=== PATIENT | female | born 1955 | race Caucasian/White ===

== ENCOUNTER 2019-11-19 08:49 | Outpatient (CLI) | payer OTHER ==
[~2019-11-19] VITALS: Ht 162.6 cm; Wt 67.3 kg
--- NOTE | ~2019-11-19 | HEMODYNAMI ---
PATIENT:EVER ASHRAF MEDICAL RECORD: [id number] : 55 LOCATION:[facility] ADMISSION DATE: 11/19/19 Generatedon:11/19/201911:29 Patient name: EVER ASHRAF Patient #: [id number] : 1955 Date of study: 11/19/2019 Page: Of Hemodynamic Procedure Report Patient Data Patient Demographics Procedure consent was obtained First Name: EVER Gender: Female Last Name: PASCALE : 1955 Patient #: [id number] Age: 64 year(s) Race: SSN: [id number] Additional ID: [id number] Contact details [address]: [address] [place] [address] State: [place] City: [place] Zip code: [address] Admission Admission Data Admission Date: 11/19/2019 Admission Time: 8:49 Arrival Date: 11/19/2019 Arrival Time: 11:00 Admit Source: Other Insurance Payor: Private health insurance [facility] #: [id number] Lab Results Lab Result Date: 11/19/2019 Lab Result Time: 0:00 Biochemistry Name Units Result Min Max BUN mg/dl 16 --(---*)-- 7 18 Creatinine mg/dl 1 --(--*-)-- 0.6 1.3 eGFR ml/min 59 *-(----)-- 90 120 NONAFRICAN CBC Name Units Result Min Max Hemoglobin g/dl 13.8 --(*---)-- 13.5 17.5 Procedure Procedure Types Cath Procedure Diagnostic Procedure LHC LHC w/Coronaries w/Grafts Sedation Charges Moderate Sedation up to 30 minutes PCI Procedure Coronary Stent Coronary Stent Initial x2 AMI/SVG/TABLET MAKING MACHINE OPERATOR HELPER PTCA or Stent SVG-BMS/MYLA Initial Hemochron ACT Test Procedure Description Procedure Date Procedure Date: 11/19/2019 Procedure Start Time: 10:57 Procedure End Time: 11:26 Procedure Staff Name Function Alejandro Michael RT Scrub Pratibha Ta RT Monitor Soren Fuentes MD Performing Physician Harmony Lazaro RN Nurse Procedure Data Cath Procedure Fluoroscopy Diagnostic fluoroscopy Total fluoroscopy Time: 9 time: 9 min min Diagnostic fluoroscopy Total fluoroscopy dose: 713 dose: 713 mGy mGy Contrast Material Contrast Material Type Amount (ml) Isovue 300 125 Entry Location Entry Primary Successful Side Size Upsize Upsize Entry Closure Succes sful Closure Location (Fr) 1 (Fr) 2 (Fr) Remarks Device Remarks Femoral Right 5 Fr 6 Fr Exoseal artery Short Estimated blood loss: 5 ml Diagnostic catheters Device Type Used For End Catheter Placement MULTIPACK Pigtail 5 Fr LV Angiography catheter MULTIPACK JL 4.0 5Fr Left Coronary catheter Angiography MULTIPACK 3DRC 5Fr Right Coronary catheter Angiography DIAGNOSTIC AR2 MOD 5 Fr Multi-vessel catheter ([id number]) Angiography Procedure Complications No complications Procedure Medications Medication Administration Route Dosage Oxygen etCO2 Nasal cannula 2 l/min Heparin Flush Bag added to field 2 bags (1000units/500ml NS) Lidocaine 2% added to field 20 0.9% NaCl I.V. 100 ml/hr Fentanyl I.V. 100 mcg Versed I.V. 2 mg Fentanyl I.V. 50 mcg Versed I.V. 1 mg Heparin Bolus I.V. 4000 units Fentanyl I.V. 25 mcg Versed I.V. 0.5 mg Fentanyl I.V. 25 mcg Versed I.V. 0.5 mg Plavix P.O. 75 mg Hemodynamics Rest HGB: 13.8 (g/dl) Heart Rate: 51 (bpm) Pressure Samples Time Site Value (mmHg) Purpose Heart Use Rate(bpm) 10:59 LV 140/36,44 Snapshot 66 Snapshots Pre Cath Intra NCS Post Cath Vital Signs Time Heart Resp SPO2 etCO2 NIBP (mmHg) Rhythm Pain Sedation Rate (ipm) (%) (mmHg) Status Level (bpm) 10:41:21 51 22 96 11.4 145/75(110) NSR 0 (11) 10(A) , No pain 10:45:39 55 19 98 22.1 152/64(108) NSR 0 (11) 10(A) , No pain 10:49:49 55 38 96 17.5 137/72(102) NSR 0 (11) 10(A) , No pain 10:54:05 50 16 96 20.5 70/34(54) NSR 0 (11) 10(A) , No pain 10:59:04 70 13 96 20.5 Measuring NSR 0 (11) 10(A) , No pain 10:59:29 52 15 94 23.6 108/67(94) NSR 0 (11) 10(A) , No pain 11:03:32 58 12 86 32.8 122/67(89) NSR 0 (11) 9(A) , No pain 11:07:36 57 12 90 27.4 135/86(108) NSR 0 (11) 9(A) , No pain 11:11:50 58 12 89 38.1 113/68(95) NSR 0 (11) 9(A) , No pain 11:15:58 48 13 87 32.8 117/63(114) NSR 0 (11) 9(A) , No pain 11:20:02 65 24 94 31.2 112/79(104) NSR 0 (11) 9(A) , No pain 11:25:01 64 15 95 37.4 141/82(113) NSR 0 (11) 10(A) , No pain Medications Time Medication Route Dose Verified Delivered Reason Notes Effectiveness by by 10:37:06 Oxygen etCO2 2 Harmony Harmony for low 02 sats Nasal l/min Tejas Lazaro cannula RN RN 10:37:13 Heparin Flush added 2 Harmony Harmony used for Bag to bags Lazaro Lazaro procedure (1000units/500ml RN RN NS) 10:37:22 Lidocaine 2% added 20ml Harmony Soren for local to vial Tejas Fuentes MD anesthetic field CHIN 10:37:37 0.9% NaCl I.V. 100 Harmony Harmony Per physician ml/hr Tejas Lazaro RN RN 10:57:20 Fentanyl I.V. 100 Harmony Harmony for sedation mcg Tejas Lazaro RN RN 10:57:24 Versed I.V. 2 mg Harmony Harmony for sedation Tejas Lazaro RN RN 11:00:37 Fentanyl I.V. 50 Harmony Harmony for sedation mcg Tejas Lazaro RN RN 11:00:41 Versed I.V. 1 mg Harmony Harmony for sedation Tejas Lazaro RN RN 11:08:44 Heparin Bolus I.V. 4000 Harmony Harmony for units Tejas Josékins anticoagulation RN RN 11:08:52 Fentanyl I.V. 25 Harmony Harmony for sedation mcg Tejas Lazaro RN RN 11:08:55 Versed I.V. 0.5 Harmony Harmony for sedation mg Tejas Lazaro RN RN 11:20:32 Fentanyl I.V. 25 Harmony Harmony for sedation mcg Tejas Lazaro RN RN 11:20:36 Versed I.V. 0.5 Harmony Harmony for sedation mg Tejas Lazaro RN RN 11:24:25 Plavix P.O. 75 mg Harmony Harmony for Lazaro Lazaro antiplatelet RN RN therapy Procedure Log Time Note 10:12:29 Informed consent obtained and on chart 10:13:25 Arrival Date: 11/19/2019 11:00:00 AM 10:13:41 Admit Source: Other 10:13:41 Insurance Payor : Private health insurance 10:14:11 Diagnostic Cath Status : Elective 10:14:35 Procedure Status Elective Heart Cath (OP). 10:14:38 Alejandro GARNER(R) (CV) sent for patient. Start room use. 10:14:39 Time tracking: Regular hours (M-F 7:00 - 5:00) 10:14:43 Plan of Care:Hemodynamics will remain stable., Cardiac rhythm will remain stable., Comfort level will be maintained., Respiratory function will remain adequate., Patient/ family verbilizes understanding of procedure., Procedure tolerated without complication., Recovers from procedure without complications.. 10:17:50 Lab Result : eGFR NONAFRICAN 59 ml/min 10:17:50 Lab Result : Hemoglobin 13.8 g/dl 10:17:50 Lab Result : BUN 16 mg/dl 10:17:50 Lab Result : Creatinine 1 mg/dl 10:19:15 Risk of Mortality: 0.1 10:19:17 Risk of blood transfusion: 1.0 10:19:20 Risk of DAVID: 0.4 10:19:27 3a) 45-59 Moderately reduced kidney function. 10:22:27 Maximum allowable contrast dose (3.7 X eGFR X 0.75)163 ml. 10:37:06 Oxygen 2 l/min etCO2 Nasal cannula was administered by Harmony Lazaro RN; for low 02 sats; Verbal order read back and verified. 10:37:13 Heparin Flush Bag (1000units/500ml NS) 2 bags added to field was administered by Harmony Lazaro RN; used for procedure; Verbal order read back and verified. 10:37:22 Lidocaine 2% 20ml vial added to field was administered by Soren Fuentes MD; for local anesthetic; Verbal order read back and verified. 10:37:37 0.9% NaCl 100 ml/hr I.V. was administered by Harmony Lazaro RN; Per physician; Verbal order read back and verified. 10:40:09 Correct patient and procedure confirmed by team. 10:40:09 Warm blankets applied, and kishore hugger turned on for patient comfort. 10:40:10 Vital chart was started 10:40:10 ECG and BP/O2 sat monitors applied to patient. 10:40:11 Baseline sample Acquired. 10:40:15 Rhythm: sinus rhythm 10:40:42 Full Disclosure recording started 10:40:46 H&P Date Dictated: 11/19/2019 Within 30 days and on chart., H&P Addendum completed by physician on day of procedure. (MUST COMPLETE FOR ALL OUTPATIENTS). 10:40:47 Pre-procedure instructions explained to patient. 10:40:48 Pre-op teaching completed and patient verbalized understanding. 10:40:49 Family in patients room. 10:40:57 Patient NPO since Midnight. 10:40:58 Is the patient allergic to Iodine/contrast media? No. 10:40:59 Was the patient premedicated? Yes 10:41:00 Is patient on blood thinner?Yes 10:41:04 ACC The patient was administered the following blood thiners within the last 24 hours: ACCPlavix 10:41:21 Patient diabetic? No. 10:41:25 Previous problem with sedation/anesthesia? No ? 10:41:26 Snore? Yes 10:41:27 Sleep apnea? No 10:41:28 Opens mouth fully? Yes 10:41:28 Deviated septum? No 10:41:29 Sticks out tongue? Yes 10:41:34 Airway obstruction? Yes emphysema 10:41:42 Dentures? Yes [id number] in tight 10:41:50 Pre procedure: right dorsailis pedis pulse 2+ Normal; easily identifiable; not easily obliterated 10:41:52 Pre procedure: left dorsailis pedis pulse 2+ Normal; easily identifiable; not easily obliterated 10:41:53 Patient pain scale 0/10 ?. 10:41:59 IV patent on arrival in right forearm with 0.9% NaCl at O. 10:42:02 Lab results completed and on chart. 10:42:07 Stress Test: yes; abnormal ? 10:42:11 Right groin area was prepped with chlora-prep and draped in sterile fashion 10:42:12 Alarms reviewed by R. N. 10:42:13 Sharps counted by scrub and verified by R.N. 10:42:14 --------ALL STOP TIME OUT------ 10:42:14 Physician arrived 10:42:16 Final Timeout: patient, procedure, and site verified with staff and physician. All members of the team are in agreement. 10:42:18 Right groin site verified by team. 10:42:21 Fire Safety Assessment: A--An alcohol-based skin anteseptic being used preoperatively., C--Open oxygen or nitrous oxide is being used., D--An ESU, laser, or fiber-optic light is being used. 10:42:24 Physical assessment completed. ASA score P 2 - A patient with mild systemic disease as per Soren Fuentes MD. 10:42:27 Sedation plan: IV Moderate Sedation Medication:Versed, Fentanyl 10:42:32 Use device set Femoral Dx 10:42:33 ACIST Syringe (01521) opened to sterile field. 10:42:34 Medline Cath Pack ([id number]) opened to sterile field. 10:42:34 Bag Decanter () opened to sterile field. 10:42:35 ACIST Hand Control (35653) opened to sterile field. 10:42:36 Tegaderm 4 x 4 (1626W) opened to sterile field. 10:42:36 DIAGNOSTIC Multipack 5Fr catheter set ([id number]) opened to sterile field. 10:42:36 ACIST Manifold (42903) opened to sterile field. 10:42:38 EMERALD Guide Wire (142-501) opened to sterile field. 10:42:38 SHEATH 5FR [employer] Randolph (CXV886) opened to sterile field. 10:55:37 IV started by Harmony Lazaro RN inleft hand with a 22 gauge IV catheter with 0.9% NaCl at [facility]. 10:56:51 IV right forearm D/C'd due to infiltration. 10:56:57 Procedure started. 10:57:00 Local anesthetic to right femoral artery with Lidocaine 2% by Soren Fuentes MD.INITIAL ACCESS ONLY 10:57:08 A 5 Fr sheath was inserted into the Right Femoral artery 10:57:20 Fentanyl 100 mcg I.V. was administered by Harmony Lazaro RN; for sedation; Verbal order read back and verified. 10:57:24 Versed 2 mg I.V. was administered by Harmony Lazaro RN; for sedation; Verbal order read back and verified. 10:57:39 Zero performed for pressure channel P1 10:58:03 A MULTIPACK Pigtail 5 Fr catheter was advanced over the wire and used for LV Angiography. 10:59:05 LV hemodynamics recorded. 10:59:06 LV gram done using REDDY 10:59:09 Injector settings: Ml/sec: 5, Volume: 15, 10:59:14 EF : 60 % 10:59:17 Catheter removed. 10:59:25 A MULTIPACK JL 4.0 5Fr catheter was advanced over the wire and used for Left Coronary Angiography. 10:59:54 LCA angiography performed. 10:59:57 Injector settings: Ml/sec: 3, Volume: 6, 11:00:37 Fentanyl 50 mcg I.V. was administered by Harmony Lazaro RN; for sedation; Verbal order read back and verified. 11:00:41 Versed 1 mg I.V. was administered by Harmony Lazaro RN; for sedation; Verbal order read back and verified. 11:00:45 Catheter removed. 11:00:53 A MULTIPACK 3DRC 5Fr catheter was advanced over the wire and used for Right Coronary Angiography. 11:01:22 MORALES to LAD angiography performed. 11:01:30 Injector settings: Ml/sec: 3, Volume: 6, 11:02:00 RCA angiography performed. 11:02:03 Injector settings: Ml/sec: 3, Volume: 6, 11:02:10 RCA angiography performed. 11:02:13 Injector settings: Ml/sec: 3, Volume: 6, 11:02:18 Catheter removed. 11:02:24 A DIAGNOSTIC AR2 MOD 5 Fr catheter ([id number]) was advanced over the wire and used for Multi-vessel Angiography. 11:03:29 SVG to Circ angiography performed. 11:04:34 Catheter removed. 11:04:35 Proceeding to intervention. 11:04:47 Sheath upsized to a 6 Fr Short. 11:05:46 SHEATH 6FR [employer] Randolph (JKA776) opened to sterile field. 11:05:47 CHOICE PT Extra Support 182cm wire ([id number]) opened to sterile field. 11:05:47 INFLATOR Merit BasixCompak (PE7003) opened to sterile field. 11:05:49 GUIDE 6FR AR 1.0 catheter (AQ6UU66) opened to sterile field. 11:05:56 GUIDE 6FR HS I catheter (LA6HSI) opened to sterile field. 11:06:22 6 Fr ar 1 sh guide catheter was inserted over the wire 11:06:43 ACC Pre-intervention JUANIS Flow is 3. 11:07:11 Pre PCI Site: Vein Graft mCirc has 90% stenosis. 11:07:44 Guide Catheter removed. unable to cannulate vessel. 11:08:41 6 Fr lcb guide catheter was inserted over the wire 11:08:44 Heparin Bolus 4000 units I.V. was administered by Harmony Lazaro RN; for anticoagulation; Verbal order read back and verified. 11:08:52 Fentanyl 25 mcg I.V. was administered by Harmony Lazaro RN; for sedation; Verbal order read back and verified. 11:08:53 GUIDE 6FR LCB catheter (LA6LCB) opened to sterile field. 11:08:55 Versed 0.5 mg I.V. was administered by Harmony Lazaro RN; for sedation; Verbal order read back and verified. 11:10:23 minamo wire advanced. 11:10:26 Wire advanced across lesion. 11:11:00 Place stent Inflation Number: 1 A LEO RX 3.0 x 26 stent ([id number]) was prepped and advanced across the Aorta Left -> Mid CX 90. The stent was deployed at 17 KRISHAN for 0:10 (min:sec) 0. 11:11:21 Inflation number: 2 The stent balloon was then re-inflated across the Aorta Left -> Mid CX 0 to 23 KRISHAN for 0:10 (min:sec) . 11:11:56 Wire removed. 11:11:57 Post PCI Site: Vein Graft mCirc has 0% stenosis. 11:11:57 Guide catheter removed. 11:12:19 6 Fr hs 1 guide catheter was inserted over the wire 11:13:31 minamo wire advanced. 11:13:32 Wire advanced across lesion. 11:13:37 ACC Pre-intervention JUANIS Flow is 3. 11:14:09 Pre PCI Site: [place] mRCA has 90% stenosis. 11:14:52 Inflation number: 1 The stent balloon was then re-inflated across the Mid RCA 90 to 23 KRISHAN for 0:10 (min:sec) 0. 11:16:20 Place stent Inflation Number: 2 A LEO RX 3.0 x 30 stent ([id number]) was prepped and advanced across the Mid RCA 90. The stent was deployed at 23 KRISHAN for 0:10 (min:sec) 0. 11:16:59 Stent catheter was removed intact over wire. 11:17:01 Wire removed. 11:17:02 Guide catheter removed. 11:17:15 Post PCI Site: [place] mRCA has 0% stenosis. 11:17:25 6 Fr xb 3.5 guide catheter was inserted over the wire 11:17:40 GUIDE 6FR XB 3.5 catheter ([id number]) opened to sterile field. 11:18:17 Pre PCI Site: [place] Diag1 has 95% stenosis. 11:18:28 minamo wire advanced. 11:18:42 Wire advanced across lesion. 11:20:32 Fentanyl 25 mcg I.V. was administered by Harmony Lazaro RN; for sedation; Verbal order read back and verified. 11:20:36 Versed 0.5 mg I.V. was administered by Harmony Lazaro RN; for sedation; Verbal order read back and verified. 11:21:04 Inflate balloon Inflation number: 1 A EUPHORA 2.0 x 15 Balloon ([id number]) was prepped and advanced across the 1st Diag 95, then inflated to 15 KRISHAN for 0:10 (min:sec) 0. 11:21:34 Balloon removed over the wire. 11:22:31 Place stent Inflation Number: 2 A LEO RX 2.25 x 18 stent ([id number]) was prepped and advanced across the 1st Diag 95. The stent was deployed at 13 KRISHAN for 0:10 (min:sec) 0. 11:23:27 Stent catheter was removed intact over wire. 11:23:28 Guide catheter removed. 11:23:28 Wire removed. 11:23:39 Post PCI Site: [place] Diag1 has 0% stenosis. 11:23:48 ACC Post-intervention JUANIS Flow is 3. 11:23:57 EXOSEAL 6Fr (EX600) opened to sterile field. 11:24:20 Sheath removed intact; hemostasis achieved with Exoseal to the Right Femoral artery. 11:24:22 Procedure ended.(Physican Out) 11:24:25 Plavix 75 mg P.O. was administered by Harmony Lazaro RN; for antiplatelet therapy; Verbal order read back and verified. 11:25:16 Fluoroscopy time 09.00 minutes. 11:25:19 ACT drawn and resulted at out of range seconds. (normal therapeutic range 180-240 seconds). 11:25:21 Fluoroscopy dose: 713 mGy 11:25:21 Flurop Dose total: 713 11:25:30 Dose Area Product 51736 mGy/cm. 11:25:34 Contrast amount:Isovue 300 125ml. 11:25:35 Maximum allowable dose exceeded? No. 11:25:37 Sharps counted by scrub and verified by R.N. 11:25:38 Insertion/operative site no bleeding no hematoma. 11:25:41 Post-op/insertion site Right Femoral artery dressed using a 4 x 4 and Tegaderm. 11:25:43 Post right femoral artery:stable 11:25:47 Post procedure rhythm: unchanged. 11:25:50 Estimated blood loss: 5 ml 11:25:52 Patient needs reinforcement of post procedure teaching. 11:25:52 Post procedure instruction explained to patient.Patient verbalizes understanding. 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 11:26:27 Procedure Complication : No complications 11:26:30 Vital chart was stopped 11:26:32 [facility] Findings: MVD- PCI performed (see procedure note) 11::33 See physician's report for complete and final results. 11::33 Operative report dictated upon procedure completion. 11::35 Report given to Pre/Post Procedure Room. 11:26:38 Patient transfered to Pre/Post Procedure Room with Stretcher. 11::40 Full Disclosure recording stopped 11::40 Procedure ended. 11:26:49 ACC-PCI Only Patient was given prescriptions, or instructed by Soren Fuentes MD to start/continue the following medications upon discharge: Plavix 11:26:50 End room use (Document Last) 11:27:26 End room use (Document Last) Intervention Summary Intervention Notes Time ActionType Lesion and Equipment Used Action# Pressure Duration Attributes 11:11:00 Place stent Aorta Left LEO RX 3.0 x 1 17 00:10 -> Mid CX 26 stent ([id number]) 11:11:21 Reinflate Aorta Left LEO RX 3.0 x 2 23 00:10 stent -> Mid CX 26 stent balloon ([id number]) 11:14:52 Reinflate Mid RCA LEO RX 3.0 x 1 23 00:10 stent 26 stent balloon ([id number]) 11:16:20 Place stent Mid RCA LEO RX 3.0 x 2 23 00:10 30 stent ([id number]) 11:21:04 Inflate 1st Diag EUPHORA 2.0 x 1 15 00:10 balloon 15 Balloon ([id number]) 11:22:31 Place stent 1st Diag LEO RX 2.25 x 2 13 00:10 18 stent ([id number]) Device Usage Item Name Manufacture Quantity Catalog Number Hospital Part Current M inimal Lot# / Charge Number Stock Stock Serial# Code ACIST Syringe Acist 1 46250 688396 827120 265181 2 0 (82893) Medical Systems Inc Bag Decanter Microtek 1 692249 86520 379036 5 () Medical Inc. Medline Cath Medline 1 [id number] 356746 48629 233735 5 Pack ([id number]) ACIST Hand Acist 1 71031 555136 585028 931227 5 Control Medical (60978) Systems Inc ACIST Manifold Acist 1 89364 811559 595663 841749 5 (92898) Medical Systems Inc DIAGNOSTIC Cardinal 1 BQ0963 639183 18911 241363 3 0 Multipack 5Fr Health catheter set (QY8496) Tegaderm 4 x 4 3M 1 1626W 577017 121190 690876 5 (1626W) SHEATH 5FR Terumo 1 AYQ199 314088 032787 583712 5 Jbsa Randolph (XRI145) EMERALD Guide Cardinal 1 502-455 775120 266288 128534 5 Wire (502-455) Health MULTIPACK Cardinal 1 906640 5 Pigtail 5 Fr Health catheter MULTIPACK JL Cardinal 1 597079 5 4.0 5Fr LY.com catheter MULTIPACK 3DRC Cardinal 1 111017 5 5Fr catheter Health DIAGNOSTIC AR2 Cardinal 1 [id number] 525630 898781 361135 2 0 MOD 5 Fr Health catheter (410035G) SHEATH 6FR Terumo 1 BVW317 727559 283824 486429 4 0 Jbsa Randolph (RGY877) INFLATOR Merit Merit 1 VZ3377 569315 548413 507707 1 5 Elementum (UC3754) CHOICE PT [place] 1 [id number] 973193 048423 161887 5 Extra Support Scientific 182cm wire ([id number]) GUIDE 6FR AR Medtronic 1 JD8QL19 332084 62086 921926 1 1.0 catheter (WT8RA73) GUIDE 6FR HS I Medtronic 1 LA6HSI 933719 47316 562902 1 catheter (LA6HSI) GUIDE 6FR LCB Medtronic 1 LA6LCB 315200 10274 954696 1 catheter (LA6LCB) LEO RX 3.0 x Medtronic 1 [id number] 358429 4564168 498872 5 [id number] 26 stent ([id number]) LEO RX 3.0 x Medtronic 1 [id number] 164356 6821179 342285 5 [id number] 30 stent ([id number]) GUIDE 6FR XB Cardinal 1 [id number] 140876 050964 124190 2 3.5 catheter [employer] (48376754) EUPHORA 2.0 x Medtronic 1 [id number] 957997 046649 736502 5 [id number] 15 Balloon ([id number]) LEO RX 2.25 x Medtronic 1 [id number] 389935 6669689 252333 5 [id number] 18 stent ([id number]) EXOSEAL 6Fr Cardinal 1 EX600 644436 969828 351789 1 0 (EX600) Health Signature Audit [place] Stage Time Signature Unsigned Intra-Procedure 11/19/2019 Pratibha Ta 11:27:27 AM RT(R) Intra-Procedure 11/19/2019 Soren Fuentes 11:29:00 AM MD Signatures Monitor : Pratibha Ta RT Signature : Date : Time : Performing Physician : Signature : Soren Fuentes MD Date : Time : Nurse : Harmony Lazaro RN Signature : Date : Time : [address] [place] [address]
--- NOTE | ~2019-11-19 | OP ---
PATIENT NAME: EVER ASHRAF MEDICAL RECORD: [id number] :55 LOCATION:D.CAT ADMISSION DATE: SURGEON: ALAINA ALEXANDRE MD DATE OF OPERATION: 11/19/2019 DATE OF SERVICE: 11/19/2019 PROCEDURES: 1. PTCA stent LAD diagonal. 2. PTCA stent vein graft to left circumflex. 3. PTCA stent [place] RCA. 4. Left heart catheterization. 5. Selective coronary angiography. 6. Vein graft angiography. 7. MORALES angiography. 8. Left ventriculogram. INDICATION: Unstable angina and coronary artery disease. PROCEDURE IN DETAIL: After informed consent was obtained and after a detailed description of the risks, benefits as well as alternative therapies, the patient elected to proceed with angiogram and angioplasty. The right femoral area was prepped and draped in normal sterile fashion. Right femoral artery was cannulated via modified Seldinger technique with placement of 6-Vietnamese sheath. All catheters exchanged through this sheath. FINDINGS: Left ventriculogram was performed in standard 30-degree REDDY view, reveals preserved cardiac wall motion, ejection fraction estimated at 55%. SELECTIVE CORONARY ANGIOGRAPHY: 1. Left main is with no significant angiographic disease. 2. Left anterior descending has a 95% to 99% stenosis leading into the first LAD diagonal. The LAD is then totally occluded. 3. Vein graft to the diagonal was closed. 4. MORALES to the LAD is widely patent. Distal LAD is widely patent. 5. Left circumflex is closed. 6. Vein graft to circumflex is patent; however, there is 90% to 95% stenosis at the ostium. There was a previously placed stent there. This is in-stent restenosis. 7. The RCA has a previously placed stent with 90% to 95% in-stent restenosis in the mid vessel. 8. Vein graft to the RCA is closed. PTCA STENT OF THE LAD DIAGONAL: The stent used was a 2.25 x 18 mm [place]. Result was 0% residual stenosis. PTCA STENT OF THE VEIN GRAFT TO THE CIRCUMFLEX: The stent used was 3.0 x 26 mm [place]. Result was 0% residual stenosis. PTCA STENT OF THE [place] RCA: The stent used was a 3.0 x 30 mm [place]. Result was 0% residual stenosis. OVERALL IMPRESSION: Successful percutaneous transluminal coronary angioplasty stent of the right coronary artery, vein graft circumflex and left anterior descending diagonal going from 90% to 95% initial stenosis to 0% residual. OPERATIVE REPORT [id number] EVER ASHRAF TRANSINT:[id number] Voice Confirmation ID: [id number] DOCUMENT ID: [id number] ALAINA ALEXANDRE MD CC: [id number] DICTATION DATE: 11/19/19 1128 TRAFFIC SAFETY ADMINISTRATOR: 11/19/19 1446 REG [facility] [address] [id number]
[2019-11-19] MEDS ORDERED: PLAVIX75 MG PO (09:28)
[2019-11-19] MEDS ORDERED: NORVASC10 MG PO (09:29)
[2019-11-19] MEDS ORDERED: BAYER CHEWABLE81 MG PO (09:29)
[2019-11-19] MEDS ORDERED: COREG25 MG PO (09:29)
[2019-11-19] MEDS ORDERED: HYDROXYUREA500 MG PO (09:30)
[2019-11-19] MEDS ORDERED: SYNTHROID50 MCG PO (09:30)
[2019-11-19] MEDS ORDERED: NEXIUM40 MG PO (09:30)
[2019-11-19] MEDS ORDERED: MIRAPEX0.5 MG PO (09:31)
[2019-11-19] MEDS ORDERED: ZOLOFT50 MG PO (09:31)
[2019-11-19] MEDS ORDERED: MELATONIN5 MG PO (09:32)
[2019-11-19] MEDS ORDERED: NITROSTAT0.4 MG SL (09:32)
[2019-11-19 09:33] VITALS: BP 122/56; Ht 162.6 cm; Wt 67.3 kg
[2019-11-19] MEDS ORDERED: LASIX40 MG PO (09:33)
[2019-11-19] MEDS ORDERED: MERIBIN5 MG PO (09:33)
[2019-11-19] MEDS ORDERED: FISH OIL 1,0001 CA1 PO (09:33)
[2019-11-19] MEDS ORDERED: NEURONTIN 300300 MG PO (09:34)
[2019-11-19 09:55] LABS: HEMATOCRIT 43.6 % (36.0-48.0); HEMOGLOBIN 13.8 g/dL (12-16); LYMPHOCYTES 12.1 % (15-50); MCH 30.3 pg (26.0-34.0); MCHC 31.7 g/dL (31.0-37.0); MCV 95.8 fL (80.0-100.0); MEAN PLATELET VOLUME 9.2 fL (7.4-10.4); NEUTROPHILS 80.4 % (40-80); PLATELET COUNT 310 10x3/uL (130-400); RBC 4.55 10x6/uL (4.00-5.40); RDW 16.2 % (11.5-14.5); WBC 9.8 10x3/uL (4.8-10.8)
[2019-11-19 10:08] LABS: ANION GAP 12.6 mmol/L (8-16); CALCIUM 9.2 mg/dL (8.5-10.1); CARBON DIOXIDE 25.9 mmol/L (21.0-32.0); CHOL - HDL RATIO 5.7 ratio (2.3-4.1); LDL-HDL RATIO 3.8 ratio (1.5-3.5); POTASSIUM - SERUM 4.5 mmol/L (3.5-5.1)
--- NOTE | 2019-11-19 11:40 | NUR ---
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 MONITORS ESTAB. 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 AT BS. ALARMS ON AND C/L IN REACH.
--- NOTE | 2019-11-19 11:55 | NUR ---
R GROIN SITE C/D/I, NO S/S BLEEDING OR HEMATOMA. PULSES PALP.
--- NOTE | 2019-11-19 12:25 | NUR ---
PT RESTING QUIETLY, VSS. R GROIN SITE SOFT, C/D/I. PULSES PALP. PT DENIES NEEDS.
--- NOTE | 2019-11-19 13:00 | NUR ---
VSS. R GROIN SITE C/D/I, NO S/S BLEEDING OR HEMATOMA. ICE CHIPS PROVIDED.
--- NOTE | 2019-11-19 13:30 | NUR ---
R GROIN SITE C/D/I, NO S/S BLEEDING OR HEMATOMA. VSS. PT DENIES NEEDS. AT BS.
--- NOTE | 2019-11-19 14:30 | NUR ---
R GROIN SITE C/D/I, SOFT. HOB ELEVATED AND SANDWICH TRAY PROVIDED.
--- NOTE | 2019-11-19 15:25 | NUR ---
R GROIN SITE SOFT, C/D/I. PIV D/C'D INTACT. PT ALLOWED UP TO GET DRESSED.
--- NOTE | 2019-11-19 15:35 | NUR ---
ALL DISCHARGE INSTRUCTIONS REVIEWED WITH PT AND . PT TO BR INDEPENDENTLY, THEN D/C'D VIA WC TO PRIVATE VEHICLE WITH ALL PAPER WORK AND BELONGINGS.
== END 2019-11-19 15:35 | disposition home or self-care (01) ==
LOC: D.CATH 08:49
PROVIDERS: ATTEND Internal Medicine Interventional Cardiology
DX: I25.110 Atherosclerotic heart disease of native coronary artery with unstable angina pectoris (principal); I10 Essential (primary) hypertension; E78.5 Hyperlipidemia, unspecified; R06.09 Other forms of dyspnea

== ENCOUNTER → 2020-05-10 11:37 | Outpatient (CLI) | payer OTHER ==
[2019-11-19 09:33] VITALS: BMI 25.4
[~2020-05-10 11:37] MED LIST: BAYER CHEWABLE81 MG PO; COREG25 MG PO; FISH OIL 1,0001 CA1 PO; HYDROXYUREA500 MG PO; LASIX40 MG PO; MELATONIN5 MG PO; MERIBIN5 MG PO; MIRAPEX0.5 MG PO; NEURONTIN 300300 MG PO; NEXIUM40 MG PO; NITROSTAT0.4 MG SL; NORVASC10 MG PO; PLAVIX75 MG PO; SYNTHROID50 MCG PO; ZOLOFT50 MG PO
== END | disposition home or self-care (01) ==
LOC: D.HCCARDIO 11:30
PROVIDERS: ATTEND Internal Medicine Cardiovascular Disease
DX: I25.10 Atherosclerotic heart disease of native coronary artery without angina pectoris (principal)

== ENCOUNTER 2020-05-24 11:58 | Day surgery (SDC) | payer OTHER ==
[~2020-05-24] VITALS: Ht 162.6 cm; Wt 70.1 kg
--- NOTE | ~2020-05-24 | HEMODYNAMI ---
PATIENT:EVER ASHRAF MEDICAL RECORD: [id number] : 55 LOCATION:[facility] ADMISSION DATE: 05/24/20 Generatedon:05/24/202015:08 Patient name: EVER ASHRAF Patient #: [id number] : 1955 Date of study: 05/24/2020 Page: Of Hemodynamic Procedure Report Patient Data Patient Demographics Procedure consent was obtained First Name: EVER Gender: Female Last Name: PASCALE : 1955 Patient #: [id number] Age: 64 year(s) Race: SSN: [id number] Additional ID: [id number] Contact details [address]: [address] [place] [address] State: [place] City: [place] Zip code: [address] Past Medical History Allergies Allergen Reaction Date Comments Reported Other 05/24/2020 BIAXIN/CLONAZEPAM/EDARBI/IMITREX/STATINS allergy Admission Admission Data Admission Date: 05/24/2020 Admission Time: 11:58 Arrival Date: 05/24/2020 Arrival Time: 0:00 Height (in.): 64.17 BSA: 1.76 (m2) Height (cm.): 163 BMI: 26.35 (kg/m2) Weight (lbs.): 154.32 Weight (kg.): 70 Lab Results Lab Result Date: 05/24/2020 Lab Result Time: 0:00 Biochemistry Name Units Result Min Max BUN mg/dl 18 --(---*)-- 7 18 Creatinine mg/dl 1.3 --(---*)-- 0.6 1.3 eGFR ml/min 44 *-(----)-- 90 120 NONAFRICAN CBC Name Units Result Min Max Hematocrit % 46.6 --(-*--)-- 42 54 Hemoglobin g/dl 14.7 --(-*--)-- 13.5 17.5 Procedure Procedure Types Cath Procedure Diagnostic Procedure [facility] w/Coronaries w/Grafts Sedation Charges Moderate Sedation up to 30 minutes PCI Procedure Coronary Stent Coronary Stent Initial Hemochron ACT Test Procedure Description Procedure Date Procedure Date: 05/24/2020 Procedure Start Time: 14:29 Procedure End Time: 15:06 Procedure Staff Name Function Brent Ng MD Performing Physician Junie Ibarra RT Monitor Norbert Arcos RN Nurse Eve Shafer RT Scrub Procedure Data Cath Procedure Fluoroscopy Diagnostic fluoroscopy Total fluoroscopy Time: time: 10.3 min 10.3 min Diagnostic fluoroscopy Total fluoroscopy dose: 669 dose: 669 mGy mGy Contrast Material Contrast Material Type Amount (ml) Isovue 300 135 Entry Location Entry Primary Successful Side Size Upsize Upsize Entry Closure Succes sful Closure Location (Fr) 1 (Fr) 2 (Fr) Remarks Device Remarks Femoral Right 5 Fr 6 Fr artery Short Estimated blood loss: 10 ml Diagnostic catheters Device Type Used For End Catheter Placement MULTIPACK JL 4.0 5Fr Left Coronary catheter Angiography DIAGNOSTIC AR MOD 5Fr Procedure Catheter ([id number]) DIAGNOSTIC AR2 MOD 5 Fr Procedure catheter ([id number]) DIAGNOSTIC IM 5Fr Procedure catheter ([id number]) MULTIPACK Pigtail 5 Fr LV Angiography catheter Procedure Complications No complications Procedure Medications Medication Administration Route Dosage Oxygen etCO2 Nasal cannula 2 l/min Versed I.V. 0.5 mg Lidocaine 2% added to field 20 Heparin Flush Bag added to field 2 bags (1000units/500ml NS) 0.9% NaCl I.V. 100 ml/hr Versed I.V. 0.5 mg Fentanyl I.V. 50 mcg Fentanyl I.V. 50 mcg Versed I.V. 1 mg Versed I.V. 1 mg Fentanyl I.V. 50 mcg Heparin Bolus I.V. 7000 units Fentanyl I.V. 50 mcg Versed I.V. 1 mg Plavix P.O. 75 mg Hemodynamics Rest BSA: 1.76 (m2) HGB: 14.7 (g/dl) O2 Consumption: Estimated: 158.31 (ml/min) O2 Co nsumption indexed: Estimated:89.95 (ml/min/m) Heart Rate: 60 (bpm) Pressure Samples Time Site Value (mmHg) Purpose Heart Use Rate(bpm) 14:43 LV 110/7,6 Snapshot 69 Gradients Valve Time Site Site Mean SEP/DFP Peak To Heart Use 1 2 (mmHg) (sec/min) Peak Rate (mmHg) (bpm) Aortic 14:44 LV AO 58 Snapshots Pre Cath Intra NCS Post Cath Vital Signs Time Heart Resp SPO2 etCO2 NIBP (mmHg) Rhythm Pain Sedation Rate (ipm) (%) (mmHg) Status Level (bpm) 14:07:04 60 25 97 0 143/70(106) NSR 0 (11) 10(A) , No pain 14:13:11 61 11 99 31.5 139/70(117) NSR 0 (11) 10(A) , No pain 14:17:27 61 14 100 22.5 136/70(120) NSR 0 (11) 10(A) , No pain 14:21:41 59 13 97 28.5 129/66(107) NSR 0 (11) 10(A) , No pain 14:25:55 69 13 94 33.7 119/62(97) NSR 0 (11) 10(A) , No pain 14:30:15 55 19 95 24 120/55(84) NSR 0 (11) 9(A) , No pain 14:34:27 60 14 95 28.5 107/58(89) NSR 0 (11) 9(A) , No pain 14:38:41 58 11 95 13.5 116/60(95) NSR 0 (11) 9(A) , No pain 14:42:59 54 11 95 21.7 109/56(96) NSR 0 (11) 9(A) , No pain 14:47:58 52 12 98 31.5 112/56(95) NSR 0 (11) 9(A) , No pain 14:52:14 56 11 98 27 120/59(96) NSR 0 (11) 10(A) , No pain 14:56:34 49 11 95 29.2 124/50(78) NSR 0 (11) 10(A) , No pain 15:01:31 52 14 96 29.2 126/64(85) NSR 0 (11) 10(A) , No pain Medications Time Medication Route Dose Verified Delivered Reason Notes Effectiveness by by 14:07:07 Oxygen etCO2 2 Brent Buffie used for Nasal l/min Gui Arcos enterprise architect manager cannula 14:08:01 Versed I.V. 0.5 Brent Buffie for anxiety see n ote mg Gui Arcos RN 14:09:58 Lidocaine 2% added 20ml Brent Brent for local to vial Gui Ng MD anesthetic field 14:10:07 Heparin Flush added 2 Brent Brent used for Bag to bags Gui Ng MD procedure (1000units/500ml field NS) 14:10:12 0.9% NaCl I.V. 100 Brent Buffie Per physician ml/hr Gui Arcos RN 14:20:34 Versed I.V. 0.5 Brent Buffie for anxiety mg Gui Arcos RN 14:20:41 Fentanyl I.V. 50 Brent Buffie for sedation mcg Gui Arcos RN 14:26:36 Fentanyl I.V. 50 Brent Buffie for sedation mcg Gui Arcos RN 14:26:58 Versed I.V. 1 mg Brent Buffie for anxiety Gui Arcos RN 14:36:41 Versed I.V. 1 mg Brent Buffie for anxiety Gui Arcos RN 14:36:45 Fentanyl I.V. 50 Brent Buffie for sedation mcg Gui Arcos RN 14:47:36 Heparin Bolus I.V. 7000 Brent Buffie for verif ied units Gui Arcos RN anticoagulation with dr ng 14:51:21 Versed I.V. 1 mg Brent Buffie for anxiety Gui Arcos RN 14:51:28 Fentanyl I.V. 50 Brent Buffie for sedation mcg Gui Arcos RN 15:03:04 Plavix P.O. 75 mg Brent Buffie for Gui Arcos RN antiplatelet therapy Procedure Log Time Note 13:55:34 Norbert Arcos RN sent for patient. Start room use. 13:56:30 Informed consent obtained and on chart 13:57:30 Procedure Status Elective Heart Cath (OP). 13:57:36 Time tracking: Regular hours (M-F 7:00 - 5:00) 13:57:45 Plan of Care:Hemodynamics will remain stable., Cardiac rhythm will remain stable., Comfort level will be maintained., Respiratory function will remain adequate., Patient/ family verbilizes understanding of procedure., Procedure tolerated without complication., Recovers from procedure without complications.. 13:58:40 Patient allergic to Other allergyBIAXIN/CLONAZEPAM/EDARBI/IMITREX/STATINS 13:58:50 Patient received from Pre/Post Procedure Room to CCL 1 Alert and oriented. Tansferred to table in Supine position. 13:59:17 Warm blankets applied, and kishore hugger turned on for patient comfort. 13:59:17 Correct patient and procedure confirmed by team. 13:59:19 ECG and BP/O2 sat monitors applied to patient. 14:01:22 H&P Date Dictated: 05/24/2020 H&P Addendum completed by physician on day of procedure. (MUST COMPLETE FOR ALL OUTPATIENTS), New H&P dictated by physician.. 14:01:24 Pre-procedure instructions explained to patient. 14:01:25 Pre-op teaching completed and patient verbalized understanding. 14:01:28 Family in patients room. 14:01:33 Patient NPO since Midnight. 14:01:39 Is the patient allergic to Iodine/contrast media? No. 14:01:43 Was the patient premedicated? Yes 14:01:52 Is patient on blood thinner?Yes 14:01:57 ACC The patient was administered the following blood thiners within the last 24 hours: ACCPlavix 14:04:09 Patient diabetic? No. 14:04:13 ----Pre-sedation anethsthesia assessment.---- 14:04:18 Previous problem with sedation/anesthesia? No ? 14:04:21 Snore? Yes 14:04:23 Sleep apnea? No 14:04:26 Deviated septum? Unknown 14:04:28 Opens mouth fully? Yes 14:04:31 Sticks out tongue? Yes 14:04:40 Airway obstruction? Yes COPD 14:04:51 Dentures? Yes IN TIGHT 14:06:49 Vital chart was started 14:07:07 Oxygen 2 l/min etCO2 Nasal cannula was administered by Norbert Arcos RN; used for procedure; Verbal order read back and verified. 14:07:59 pt is allergic to clonazepam and states causes hives, she however states that she is not allergic to ativan or valium. 14:08:01 Versed 0.5 mg I.V. was administered by Norbert Arcos RN; for anxiety; see note Verbal order read back and verified. 14:09:05 Pre procedure: right dorsailis pedis pulse 1+ Palpable, but thready & weak; easily obliterated 14:09:15 IV patent on arrival in right forearm with 0.9% NaCl at [facility]. 14:09:22 Pt given 0.5 mg of versed for anxiety and pt informed to let me know immediately if she expreriences any itching or hives or other symptoms. Will monitor closely. 14:09:58 Lidocaine 2% 20ml vial added to field was administered by Brent Ng MD; for local anesthetic; Verbal order read back and verified. 14:10:07 Heparin Flush Bag (1000units/500ml NS) 2 bags added to field was administered by Brent Ng MD; used for procedure; Verbal order read back and verified. 14:10:12 0.9% NaCl 100 ml/hr I.V. was administered by Norbert Arcos RN; Per physician; Verbal order read back and verified. 14:10:52 pt having sinus rhythm with frequent pvcs 14:11:02 Lab Result : BUN 18 mg/dl 14:11: Lab Result : Creatinine 1.3 mg/dl 14:11:02 Lab Result : eGFR NONAFRICAN 44 ml/min 14:11:02 Lab Result : Hematocrit 46.6 % 14:11:02 Lab Result : Hemoglobin 14.7 g/dl 14::09 Lab results completed and on chart. 14:11:49 Stress Test: yes; abnormal ANTERIOR AND APICAL 14:11:54 Right groin area was prepped with chlora-prep and draped in sterile fashion 14:11:58 Alarms reviewed by R. N. 14:11:58 Sharps counted by scrub and verified by R.N. 14:14:30 Pt had no known reaction to versed, will continue to monitor. 14:16:16 Use device set Femoral Dx 14:16:18 ACIST Syringe (33072) opened to sterile field. 14:16:19 Bag Decanter (2002) opened to sterile field. 14:16:19 Medline Cath Pack ([id number]) opened to sterile field. 14:16:21 ACIST Hand Control (90307) opened to sterile field. 14:16:22 ACIST Manifold (07733) opened to sterile field. 14:16:24 DIAGNOSTIC Multipack 5Fr catheter set (AA1450) opened to sterile field. 14:16:25 Tegaderm 4 x 4 (1626W) opened to sterile field. 14:16:26 SHEATH 5FR [place] (IMI478) opened to sterile field. 14:16:27 EMERALD Guide Wire (945-385) opened to sterile field. 14:16:40 Arrival Date: 05/24/2020 12:00:00 AM 14:16:45 Patient Height : 64.17 inches 14:16:50 Patient Weight : 154.32 lbs 14:19:33 Physician arrived 14:19:34 --------ALL STOP TIME OUT------ 14:19:36 Final Timeout: patient, procedure, and site verified with staff and physician. All members of the team are in agreement. 14:19:38 Right groin site verified by team. 14:19:44 Fire Safety Assessment: A--An alcohol-based skin anteseptic being used preoperatively., C--Open oxygen or nitrous oxide is being used., D--An ESU, laser, or fiber-optic light is being used. 14:19:51 Physical assessment completed. ASA score P 2 - A patient with mild systemic disease as per Brent Ng MD. 14:19:57 3b) 30-44 Moderately reduced kidney function. 14:20:02 Maximum allowable contrast dose (3.7 X eGFR X 0.75)122 ml. 14:20:08 Sedation plan: IV Moderate Sedation Medication:Versed, Fentanyl 14:20:34 Versed 0.5 mg I.V. was administered by Norbert Arcos RN; for anxiety; Verbal order read back and verified. 14:20:36 Baseline sample Acquired. 14:20:41 Fentanyl 50 mcg I.V. was administered by Norbert Arcos RN; for sedation; Verbal order read back and verified. 14:20:41 Rhythm: sinus rhythm 14:20:43 Full Disclosure recording started 14:24:33 Zero performed for pressure channel P1 14:26:36 Fentanyl 50 mcg I.V. was administered by Norbert Arcos RN; for sedation; Verbal order read back and verified. 14:26:58 Versed 1 mg I.V. was administered by Norbert Arcos RN; for anxiety; Verbal order read back and verified. 14:29:22 Procedure started. 14:29:31 Local anesthetic to right femoral artery with Lidocaine 2% by Brent Ng MD.INITIAL ACCESS ONLY 14:31:07 A 5 Fr sheath was inserted into the Right Femoral artery 14:31:30 A MULTIPACK JL 4.0 5Fr catheter was advanced over the wire and used for Left Coronary Angiography. 14:32:03 LCA angiography performed. 14:32:21 Injector settings: Ml/sec: 3, Volume: 6, 14:34:06 A DIAGNOSTIC AR MOD 5Fr Catheter ([id number]) was advanced over the wire and used for Procedure. 14:34:16 RCA angiography performed. 14:35:50 SVG to Diag occluded. 14:35:57 Catheter removed. 14:36:17 A DIAGNOSTIC AR2 MOD 5 Fr catheter ([id number]) was advanced over the wire and used for Procedure. 14:36:41 Versed 1 mg I.V. was administered by Norbert Arcos RN; for anxiety; Verbal order read back and verified. 14:36:45 Fentanyl 50 mcg I.V. was administered by Norbert Arcos RN; for sedation; Verbal order read back and verified. 14:37:56 SVG to Circ angiography performed. 14:38:16 Injector settings: Ml/sec: 3, Volume: 6, 14:38:19 Catheter removed. 14:39:04 A DIAGNOSTIC IM 5Fr catheter (071134I) was advanced over the wire and used for Procedure. 14:41:07 MORALES to LAD angiography performed. 14:41:13 Injector settings: Ml/sec: 3, Volume: 6, 14:41:38 INFLATOR Merit BasixCompak (BG7708) opened to sterile field. 14:41:39 GUIDE 6FR JR 4.0 catheter (HD3QZ09) opened to sterile field. 14:41:40 TUBING High Pressure Extension Tubing (Gui) (TM8023P) opened to sterile field. 14:41:41 SHEATH 6FR [place] (DNE388) opened to sterile field. 14:42:17 BMW 300cm [place] 2 J wire ([id number]) opened to sterile field. 14:42:45 LT SUBCLAVIAN INJECTION IS MADE. 14:42:47 Catheter removed. 14:42:58 A MULTIPACK Pigtail 5 Fr catheter was advanced over the wire and used for LV Angiography. 14:43:05 LV gram done using REDDY 14:43:09 Injector settings: Ml/sec: 5, Volume: 15, 14:43:53 EF : 50 % 14:44:05 Catheter removed. 14:44:57 Proceeding to intervention. 14:45:11 Sheath upsized to a 6 Fr Short. 14:45:20 ACC Pre-intervention JUANIS Flow is 3. 14:46:21 Pre PCI Site: [place] dRCA has 90% stenosis. 14:46:46 6 Fr JR4 guide catheter was inserted over the wire 14:46:56 FNY763 wire advanced. 14:47:36 Heparin Bolus 7000 units I.V. was administered by Norbert Arcos RN; for anticoagulation; verified with dr ng Verbal order read back and verified. 14:48:50 Wire advanced across lesion. 14:51:21 Versed 1 mg I.V. was administered by Norbert Arcos RN; for anxiety; Verbal order read back and verified. 14:51:28 Fentanyl 50 mcg I.V. was administered by Norbert Arcos RN; for sedation; Verbal order read back and verified. 14:52:16 Place stent Inflation Number: 1 A LEO RX 3.0 x 22 stent ([id number]) was prepped and advanced across the Dist RCA . The stent was deployed at 12 KRISHAN for 0:16 (min:sec) . 14:53:27 Inflation number: 2 The stent balloon was then re-inflated across the Dist RCA to 0 KRISHAN for 0:10 (min:sec) . 14:53:58 Stent catheter was removed intact over wire. 14:56:56 Place stent Inflation Number: 1 A LEO RX 3.0 x 12 stent ([id number]) was prepped and advanced across the Prox RCA . The stent was deployed at 16 KRISHAN for 0:28 (min:sec) . 14:57:45 Stent catheter was removed intact over wire. 14:57:47 Wire removed. 14:57:48 Guide catheter removed. 14:57:59 EXOSEAL 6Fr (EX600) opened to sterile field. 14:58:21 Post PCI Site: [place] dRCA has 0% stenosis. 14:58:36 ACC Post-intervention JUANIS Flow is 3. 14:59:24 Procedure ended.(Physican Out) 14:59:31 Contrast amount:Isovue 300 135ml. 14:59:34 Maximum allowable dose exceeded? Yes. 14:59:43 Fluoroscopy time 10.30 minutes. 14:59:49 Flurop Dose total: 669 14:59:49 Fluoroscopy dose: 669 mGy 15:00:02 Dose Area Product 07477 mGy/cm. 15:00:15 Sharps counted by scrub and verified by R.N. 15:00:21 Post-op/insertion site Right Femoral artery dressed using a 4 x 4 and Tegaderm. 15:00:26 Post-procedure physical assessment completed. ASA score P 2 - A patient with mild systemic disease as per Brent Ng MD. 15:00:31 Post procedure rhythm: unchanged. 15:00:35 Estimated blood loss: 10 ml 15:00:37 Post procedure instruction explained to patient.Patient verbalizes understanding. 15:00:38 Patient needs reinforcement of post procedure teaching. 15:02:21 Procedure type changed to Cath procedure, Diagnostic procedure, LHC, C w/Coronaries w/Grafts, Sedation Charges, Moderate Sedation up to 30 minutes, PCI procedure, Coronary Stent, Coronary Stent Initial, Hemochron ACT Test 15:02:24 Procedure and supply charges have been captured, reviewed, submitted and are correct. 15:03:04 Plavix 75 mg P.O. was administered by Norbert Arcos RN; for antiplatelet therapy; Verbal order read back and verified. 15:03:18 Procedure Complication : No complications 15:03:22 Vital chart was stopped 15:03:26 [facility] Findings: MVD- PCI performed (see procedure note) 15:03:31 See physician's report for complete and final results. 15:03:34 Report given to Pre/Post Procedure Room. 15:03:38 Patient transfered to Pre/Post Procedure Room with Stretcher. 15:05:55 ACT drawn and resulted at OUT OF RANGE HIGH seconds. (normal therapeutic range 180-240 seconds). 15:06:47 Procedure ended. 15:06:47 Full Disclosure recording stopped 15:06:59 End room use (Document Last) Intervention Summary Intervention Notes Time ActionType Lesion and Equipment Used Action# Pressure Duration Attributes 14:52:16 Place stent Dist RCA LOE RX 3.0 x 1 12 00:16 22 stent ([id number]) 14:53:27 Reinflate Dist RCA LEO RX 3.0 x 2 0 00:10 stent 22 stent balloon ([id number]) 14:56:56 Place stent Prox RCA LEO RX 3.0 x 1 16 00:28 12 stent ([id number]) Device Usage Item Name Manufacture Quantity Catalog [facility] Lot# / Number Charge Number Stock Stock Serial# Code ACIST Syringe Acist 1 45446 186151 938649 866729 20 (04231) Medical Systems Inc Bag Decanter Microtek 1 907639 62837 562236 5 () Medical Inc. Medline Cath Medline 1 [id number] 980557 82951 595567 5 Pack ([id number]) ACIST Hand Acist 1 43806 250527 321445 324415 5 Control Medical (77835) Systems Inc ACIST Manifold Acist 1 33001 186521 341659 103461 5 (88941) Medical Systems Inc DIAGNOSTIC Cardinal 1 [id number] 901992 63401 775080 30 Multipack 5Fr Health catheter set (FP1204) Tegaderm 4 x 4 3M 1 1626W 625000 425669 950279 5 (1626W) SHEATH 5FR Terumo 1 SST550 679615 561421 794971 5 [place] (PZQ720) EMERALD Guide Cardinal 1 502-455 037564 870104 277729 5 Wire (502-455) Health MULTIPACK JL Cardinal 1 776519 5 4.0 5Fr Health catheter DIAGNOSTIC AR Cardinal 1 [id number] 520141 977404 082116 15 MOD 5Fr Health Catheter (177780T) DIAGNOSTIC AR2 Cardinal 1 [id number] 392450 507381 444034 20 MOD 5 Fr Health catheter (089029O) DIAGNOSTIC IM Cardinal 1 637514T 190953 516088 280012 5 5Fr catheter Health (746488Y) INFLATOR Merit Merit 1 GO7401 907727 837190 650286 15 redealizeazLenco Mobile Medical (VP6063) GUIDE 6FR JR Medtronic 1 [id number] 563209 70241 215358 1 4.0 catheter (SG0RB90) TUBING High Merit 1 [id number] 691453 48607 955599 10 Pressure Medical Extension Tubing (Ng) (KM2501U) SHEATH 6FR Terumo 1 [id number] 960784 076299 717776 40 [place] (RQW937) BMW 300cm [place] 1 [id number] 037602 866232 583612 5 [place] 2 J Vascular wire (7516750M) MULTIPACK Cardinal 1 716144 5 Pigtail 5 Fr Health catheter LEO RX 3.0 x Medtronic 1 [id number] 355774 8083413 500413 5 [id number] 22 stent ([id number]) LEO RX 3.0 x Medtronic 1 [id number] 677250 7828270 446712 5 [id number] 12 stent ([id number]) EXOSEAL 6Fr Cardinal 1 EX600 267255 776340 579604 10 (EX600) Health Signature Audit [place] Stage Time Signature Unsigned Intra-Procedure 05/24/2020 Junie 3:07:22 PM Stacey RT(R) (CV) Intra-Procedure 05/24/2020 Norbert Arcos RN 3:08:18 PM Intra-Procedure 05/24/2020 Brent Ng MD 3:08:52 PM [facility] [address] [place] [address]
[2020-05-24] MEDS ORDERED: REQUIP0.25 MG PO (12:57)
[2020-05-24] MEDS ORDERED: THERAGRAN M [BK1 TAB PO (12:58)
[2020-05-24] MEDS ORDERED: TRAZODONE HCL150 MG PO (12:58)
[2020-05-24] MEDS ORDERED: PROAIR HFA8.5 G1 INH (12:59)
[2020-05-24] MEDS ORDERED: VANCOCIN HCL250 MG PO (13:00)
[2020-05-24 13:12] VITALS: BP 122/83; Ht 162.6 cm; Wt 70.1 kg
[2020-05-24 13:33] LABS: ANION GAP 13.3 mmol/L (8-16); CALCIUM 9.6 mg/dL (8.5-10.1); CARBON DIOXIDE 28.2 mmol/L (21.0-32.0); CREATININE - SERUM 1.3 mg/dL (0.6-1.3); POTASSIUM - SERUM 4.5 mmol/L (3.5-5.1)
[2020-05-24 13:34] LABS: BASOPHILS 0.4 % (0-2); EOSINOPHILS 2.1 % (0-7); HEMATOCRIT 46.6 % (36.0-48.0); HEMOGLOBIN 14.7 g/dL (12-16); IMMATURE GRANULOCYTES 0.9 % (0-5); MCH 31.3 pg (26.0-34.0); MCHC 31.5 g/dL (31.0-37.0); MCV 99.4 fL (80.0-100.0); MEAN PLATELET VOLUME 9.7 fL (7.4-10.4); MONOCYTES 6.9 % (2-11); NEUTROPHILS 76.7 % (40-80); RBC 4.69 10x6/uL (4.00-5.40); RDW 16.2 % (11.5-14.5); WBC 11.6 10x3/uL (4.8-10.8)
[2020-05-24 13:47] LABS: CHOL - HDL RATIO 6.8 ratio (2.3-4.1); PLATELET COUNT 428 10x3/uL (130-400)
--- NOTE | 2020-05-24 15:15 | NUR ---
PT REC'D TO ROOM 3 VIA STRETCHER FROM [facility]. MONITORS ESTAB, AT BS, DR. ARTEAGA IN TO UPDATE. SEE SEMICONDUCTOR WAFERS MARKER. ALARMS ON AND C/L IN REACH.
--- NOTE | 2020-05-24 15:30 | NUR ---
R GROIN SITE SOFT, NO S/S BLEEDING OR HEMATOMA. PULSES PALP. VSS. PT DENIES PAIN OR NEEDS. ALARMS ON AND C/L IN REACH.
--- NOTE | 2020-05-24 16:00 | NUR ---
R GROIN SITE SOFT, NO S/S BLEEDING OR HEMATOMA. PULSES PALP. VSS. PT DENIES PAIN OR NEEDS. ALARMS ON AND C/L IN REACH.
--- NOTE | 2020-05-24 16:15 | NUR ---
R GROIN SITE C/D/I, NO S/S BLEEDING OR HEMATOMA. PT VOIDED 400 ML CLEAR, YELLOW URINE ON BED BANKS - DALIA-CARE PROVIDED AND PT REPOSTIONED UP IN BED FOR COMFORT. VSS. C/L IN REACH.
--- NOTE | 2020-05-24 16:45 | NUR ---
VSS, PT RESTING QUIETLY. R GROIN SITE C/D/I, NO S/S BLEEDING OR HEMATOMA, PULSES PALP. C/L IN REACH.
--- NOTE | 2020-05-24 18:00 | NUR ---
R GROIN SITE SOFT, C/D/I. HOB ELEVATED, SANDWICH TRAY AND TEA PROVIDED. VSS. PT DENIES PAIN OR NEEDS. C/L IN REACH.
--- NOTE | 2020-05-24 18:35 | NUR ---
R GROIN SITE SOFT, NO S/S BLEEDING OR HEMATOMA. PULSES PALP. PIV D/C'D INTACT, DSG APPLIED. PT ALLOWED UP TO GET DRESSED AND GO TO BR INDEPENDENTLY.
--- NOTE | 2020-05-24 18:45 | NUR ---
ALL DISCHARGE INSTRUCTIONS REVIEWED WITH PT, INCLUDING MEDS, RESTRICTIONS, AND F/U APPT.
--- NOTE | 2020-05-24 18:50 | NUR ---
PT D/C'D VIA WC TO PRIVATE VEHICLE WITH ALL PAPERWORK AND BELONGINGS.
== END 2020-05-24 18:50 | disposition home or self-care (01) ==
LOC: D.CATH 11:58
PROVIDERS: ATTEND Internal Medicine Cardiovascular Disease
DX: I25.119 Atherosclerotic heart disease of native coronary artery with unspecified angina pectoris (principal); R94.39 Abnormal result of other cardiovascular function study; T82.855A Stenosis of coronary artery stent, initial encounter; E78.5 Hyperlipidemia, unspecified

== ENCOUNTER → 2020-12-21 10:13 | Outpatient (CLI) | payer MEDICARE ==
[2020-05-24 13:12] VITALS: BMI 26.5
[~2020-12-21 10:13] MED LIST changes: +PROAIR HFA8.5 G1 INH; +REQUIP0.25 MG PO; +THERAGRAN M [BK1 TAB PO; +TRAZODONE HCL150 MG PO; +VANCOCIN HCL250 MG PO
== END | disposition home or self-care (01) ==
LOC: D.HCCARDIO 10:13
PROVIDERS: ATTEND Internal Medicine Cardiovascular Disease
DX: I25.10 Atherosclerotic heart disease of native coronary artery without angina pectoris (principal)

== ENCOUNTER 2021-02-08 23:23 | Inpatient (IN) | payer MEDICARE ==
[~2021-02-08] VITALS: Ht 162.6 cm; Wt 70.3 kg
--- NOTE | ~2021-02-08 | HEMODYNAMI ---
PATIENT:EVER ASHRAF MEDICAL RECORD: [id number] : 55 LOCATION[facility] D.[id number] ADMISSION DATE: 02/08/21 Generatedon:19:31 Patient name: EVER ASHRAF Patient #: [id number] : 1955 Date of study: 02/09/2021 Page: Of Hemodynamic Procedure Report Patient Data Patient Demographics Procedure consent was obtained First Name: EVER Gender: Female Last Name: PASCALE : 1955 Patient #: [id number] Age: 65 year(s) Race: SSN: [id number] Additional ID: [id number] Contact details Address: [address] [place] [address] State: [place] City: [place] Zip code: [address] Past Medical History History of disease Date Diagnosis Comments CAD Allergies Allergen Reaction Date Comments Reported Other 05/24/2020 BIAXIN/CLONAZEPAM/EDARBI/IMITREX/STATINS allergy Other 02/09/2021 STATINS, EDARBI, BIAXIN, allergy CLONAZEPAM,IMITREX Admission Admission Data Admission Date: 02/08/2021 Admission Time: 23:57 Room #: D.2110 Height (in.): 63.78 BSA: 1.75 (m2) Height (cm.): 162 BMI: 26.67 (kg/m2) Weight (lbs.): 154.32 Weight (kg.): 70 Lab Results Lab Result Date: 02/09/2021 Lab Result Time: 0:00 Biochemistry Name Units Result Min Max BUN mg/dl 16 --(---*)-- 7 18 Creatinine mg/dl 1.1 --(--*-)-- 0.6 1.3 eGFR ml/min 53 *-(----)-- 90 120 NONAFRICAN CBC Name Units Result Min Max Hematocrit % 45.4 --(-*--)-- 42 54 Hemoglobin g/dl 14.4 --(*---)-- 13.5 17.5 Procedure Procedure Types Cath Procedure Diagnostic Procedure LH LHC w/Coronaries w/Grafts Sedation Charges Moderate Sedation 25-39 minutes PCI Procedure Hemochron ACT Test PTCA PTCA Initial Procedure Description Procedure Date Procedure Date: 02/09/2021 Procedure Start Time: 8:56 Procedure End Time: 9:23 Procedure Staff Name Function Mellisa Harrison RT Monitor Eve Shafer RT Scrub Norbert Arcos RN Nurse Erik Conway MD Performing Physician Procedure Data Cath Procedure Fluoroscopy Diagnostic fluoroscopy Total fluoroscopy Time: 8 time: 8 min min Diagnostic fluoroscopy Total fluoroscopy dose: dose: 1004 mGy 1004 mGy Contrast Material Contrast Material Type Amount (ml) Isovue 300 120 Entry Location Entry Primary Successful Side Size Upsize Upsize Entry Closure Succes sful Closure Location (Fr) 1 (Fr) 2 (Fr) Remarks Device Remarks Femoral Right 5 Fr 6 Fr Exoseal artery Short Estimated blood loss: 10 ml Diagnostic catheters Device Type Used For End Catheter Placement MULTIPACK JL 4.0 5Fr Procedure catheter MULTIPACK 3DRC 5Fr Procedure catheter DIAGNOSTIC AR MOD 5Fr Procedure Catheter ([id number]) MULTIPACK Pigtail 5 Fr Procedure catheter Procedure Complications No complications Procedure Medications Medication Administration Route Dosage Oxygen etCO2 Nasal cannula 2 l/min Nitro Salamonia S.L. 400 mcg Lidocaine 2% added to field 20 Heparin Flush Bag added to field 2 bags (1000units/500ml NS) 0.9% NaCl I.V. 100 ml/hr Versed I.V. 1 mg Fentanyl I.V. 50 mcg Heparin Bolus I.V. 5000 units Fentanyl I.V. 50 mcg Versed I.V. 1 mg Hemodynamics Rest BSA: 1.75 (m2) HGB: 14.4 (g/dl) O2 Consumption: Estimated: 163.11 (ml/min) O2 Co nsumption indexed: Estimated:93.21 (ml/min/m) Heart Rate: 69 (bpm) Gradients Valve Time Site Site Mean SEP/DFP Peak To Heart Use 1 2 (mmHg) (sec/min) Peak Rate (mmHg) (bpm) Aortic 9:06 LV AO 77 Snapshots Pre Cath Intra NCS Post Cath Vital Signs Time Heart Resp SPO2 etCO2 NIBP (mmHg) Rhythm Pain Status Sedation Rate (ipm) (%) (mmHg) Level (bpm) 8:45:20 95 16 95 31.4 137/81(108) NSR 10 (11) , 10(A) Unimaginable unspeakable 8:50:25 84 15 94 44.9 177/108(153) NSR 10 (11) , 10(A) Unimaginable unspeakable 8:54:43 68 11 94 0 163/84(113) NSR 10 (11) , 10(A) Unimaginable unspeakable 8:58:55 78 18 96 24.6 115/96(111) NSR 0 (11) , No 10(A) pain 9:03:52 74 23 96 0 148/73(128) NSR 0 (11) , No 9(A) pain 9:08:08 74 21 97 0.7 133/73(106) NSR 0 (11) , No 9(A) pain 9:12:20 76 15 97 31.4 138/81(114) NSR 0 (11) , No 9(A) pain 9:16:32 80 13 98 21.7 157/87(137) NSR 0 (11) , No 10(A) pain 9:20:58 68 23 96 31.4 130/61(110) NSR 0 (11) , No 10(A) pain Medications Time Medication Route Dose Verified Delivered Reason Notes Effectiveness by by 8:49:47 Nitro Salamonia S.L. 400 Erik Buffie Per physician pt wit h mcg St Tashi Arcos RN sudden onset of 10/10 chest pain when laid flat on procedure table. 8:49:48 Oxygen etCO2 2 Erik Rosalesie used for Nasal l/min St Tashi Arcos RN procedure cannula 8:53:15 Fentanyl I.V. 50 Erik Buffie for sedation mcg St Tashi Arcos RN, MD 8:57:41 Lidocaine 2% added 20ml Erik Buffie used for to vial St Tashi wong MD 8:57:59 Heparin Flush added 2 Erik Buffie used for Bag to bags St Tashi Arcos RN procedure (1000units/500ml field PERRY NS) 8:58:04 0.9% NaCl I.V. 100 Erik Toussaint Per physician ml/hr St Tashi Arcos RN, MD 8:58:17 Versed I.V. 1 mg Erik Rosalesie for sedation St Tashi Arcos RN, MD 8:58:24 Fentanyl I.V. 50 Erik Toussaint for sedation mcg St Tashi Arcos RN, MD 9:07:07 Heparin Bolus I.V. 5000 Erik Toussaint for verifi ed units St Tashi Arcos RN anticoagulation with dr MD aguirre 9:17:03 Versed I.V. 1 mg Erik Toussaint for sedation St Tashi Arcos RN, MD Procedure Log Time Note 8:12:14 Informed consent obtained and on chart 8:15:32 Procedure Status Urgent Heart Cath (IP). 8:15:33 Time tracking: Regular hours (M-F 7:00 - 5:00) 8:15:36 Plan of Care:Hemodynamics will remain stable., Cardiac rhythm will remain stable., Comfort level will be maintained., Respiratory function will remain adequate., Patient/ family verbilizes understanding of procedure., Procedure tolerated without complication., Recovers from procedure without complications.. 8:17:12 Patient allergic to Other allergySTATINS, EDARBI, BIAXIN, CLONAZEPAM,IMITREX 8:17:22 Patient Weight : 154.32 lbs 8:17:25 Patient Height : 63.78 inches 8:18:38 Lab Result : BUN 16 mg/dl 8:18:38 Lab Result : Hematocrit 45.4 % 8:18:38 Lab Result : eGFR NONAFRICAN 53 ml/min 8:18:38 Lab Result : Creatinine 1.1 mg/dl 8:18:38 Lab Result : Hemoglobin 14.4 g/dl 8:26:34 Norbert Arcos RN sent for patient. Start room use. 8:43:55 Patient received from Med II to CCL 2 Alert and oriented. Tansferred to table in Supine position. 8:43:59 Warm blankets applied, and kishore hugger turned on for patient comfort. 8:43:59 ECG and BP/O2 sat monitors applied to patient. 8:44:00 Correct patient and procedure confirmed by team. 8:44:01 Vital chart was started 8:44:02 Baseline sample Acquired. 8:44:05 Rhythm: sinus rhythm 8:44:06 Full Disclosure recording started 8:44:07 Pre-procedure instructions explained to patient. 8:44:07 Pre-op teaching completed and patient verbalized understanding. 8:44:09 Family unavailable. 8:44:10 Patient NPO since Midnight. 8:44:11 Is the patient allergic to Iodine/contrast media? No. 8:44:12 Is patient on blood thinner?Yes 8:44:14 ACC The patient was administered the following blood thiners within the last 24 hours: ACCPlavix 8:44:16 Patient diabetic? No. 8:44:18 Patient not . Patient is over age 55. 8:44:19 Previous problem with sedation/anesthesia? No ? 8:44:20 Snore? Yes 8:44:21 Sleep apnea? No 8:44:22 Deviated septum? No 8:44:23 Opens mouth fully? Yes 8:44:23 Sticks out tongue? Yes 8:44:26 Airway obstruction? Yes COPD 8:44:29 Dentures? No OUYT 8:44:33 Pre procedure: right dorsailis pedis pulse 1+ Palpable, but thready & weak; easily obliterated 8:44:41 IV patent on arrival in right antecubital with 0.9% NaCl at [facility]. 8:44:48 Lab results completed and on chart. 8:44:51 Right groin area was prepped with chlora-prep and draped in sterile fashion 8:44:52 Alarms reviewed by R. N. 8:44:53 Sharps counted by scrub and verified by R.N. 8:49:47 Nitro Salamonia 400 mcg S.L. was administered by Norbert Arcos RN; Per physician; pt with sudden onset of 10/10 chest pain when laid flat on procedure table. Verbal order read back and verified. 8:49:48 Oxygen 2 l/min etCO2 Nasal cannula was administered by Norbert Arcos RN; used for procedure; Verbal order read back and verified. 8:50:21 Upon laying pt flat on procedure table, pt had sudden onset of 10/10 chest pain with labored respirations. Pt chest pain improved to 7/10 after SL NTG. On property assessment monitor pt had frequent PVCs with onset of CP. 8:52:52 --------ALL STOP TIME OUT------ 8:52:52 Final Timeout: patient, procedure, and site verified with staff and physician. All members of the team are in agreement. 8:52:54 Right groin site verified by team. 8:52:58 Fire Safety Assessment: A--An alcohol-based skin anteseptic being used preoperatively., C--Open oxygen or nitrous oxide is being used., D--An ESU, laser, or fiber-optic light is being used. 8:53:03 Physical assessment completed. ASA score P 3 - A patient with severe systemic disease as per Erik Conway MD. 8:53:07 3a) 45-59 Moderately reduced kidney function. 8:53:10 Maximum allowable contrast dose (3.7 X eGFR X 0.75)147 ml. 8:53:15 Fentanyl 50 mcg I.V. was administered by Norbert Arcos RN; for sedation; Verbal order read back and verified. 8:55:23 Procedure started. 8:55:26 Use device set Femoral Dx 8:55:27 ACIST Syringe (21812) opened to sterile field. 8:55:28 Bag Decanter (2002S) opened to sterile field. 8:55:29 ACIST Hand Control (79121) opened to sterile field. 8:55:29 ACIST Manifold (26647) opened to sterile field. 8:55:30 Tegaderm 4 x 4 (1626W) opened to sterile field. 8:55:30 Medline Cath Pack ([id number]) opened to sterile field. 8:55:31 DIAGNOSTIC Multipack 5Fr catheter set (RJ8322) opened to sterile field. 8:55:32 EMERALD Guide Wire (079-129) opened to sterile field. 8:55:34 SHEATH 5FR Casco (QII766) opened to sterile field. 8:56:14 Zero performed for pressure channel P1 8:56:21 Local anesthetic to right femoral artery with Lidocaine 2% by Mellisa Harrison RT(R).INITIAL ACCESS ONLY 8:57:03 A 5 Fr sheath was inserted into the Right Femoral artery 8:57:41 Lidocaine 2% 20ml vial added to field was administered by Norbert Arcos RN; used for procedure; Verbal order read back and verified. 8:57:59 Heparin Flush Bag (1000units/500ml NS) 2 bags added to field was administered by Norbert Arcos RN; used for procedure; Verbal order read back and verified. 8:58:04 0.9% NaCl 100 ml/hr I.V. was administered by Norbert Arcos RN; Per physician; Verbal order read back and verified. 8:58:17 Versed 1 mg I.V. was administered by Norbert Arcos RN; for sedation; Verbal order read back and verified. 8:58:24 Fentanyl 50 mcg I.V. was administered by Norbert Arcos RN; for sedation; Verbal order read back and verified. 8:59:12 A MULTIPACK JL 4.0 5Fr catheter was advanced over the wire and used for Procedure. 8:59:15 LCA angiography performed. 8:59:26 Catheter removed. 8:59:31 A MULTIPACK 3DRC 5Fr catheter was advanced over the wire and used for Procedure. 9:00:15 RCA angiography performed. 9:01:11 SVG to Circ angiography performed. 9:01:29 MORALES to LAD angiography performed. 9:01:30 Catheter removed. 9:02:43 A DIAGNOSTIC AR MOD 5Fr Catheter ([id number]) was advanced over the wire and used for Procedure. 9:04:02 SVG to Circ angiography performed. 9:04:04 Catheter removed. 9:04:12 Proceeding to intervention. 9:04:22 SHEATH 6FR Casco (SUD621) opened to sterile field. 9:04:44 INFLATOR Merit BasixCompak (DA1605) opened to sterile field. 9:04:45 BMW 300cm Straight [place] 2 wire ([id number]) opened to sterile field. 9:04:50 A MULTIPACK Pigtail 5 Fr catheter was advanced over the wire and used for Procedure. 9:05:04 LV gram done using REDDY 9:05:06 Injector settings: Ml/sec: 10, Volume: 20, 9:05:51 LV hemodynamics recorded. 9:05:57 EF : 50 % 9:05:59 Catheter removed. 9:06:13 GUIDE 6FR HS I catheter (LA6HSI) opened to sterile field. 9:06:19 Sheath upsized to a 6 Fr Short. 9:07:07 Heparin Bolus 5000 units I.V. was administered by Norbert Arcos RN; for anticoagulation; verified with dr aguirre Verbal order read back and verified. 9:07:13 Pre PCI Site: Three Affiliated RCA has 95% stenosis. 9:07:17 6 Fr HS 1 guide catheter was inserted over the wire 9:08:22 BMW 300 wire advanced. 9:09:29 Wire advanced across lesion. 9:12:59 Inflate balloon Inflation number: 1 A EUPHORA 3.5 x 20 Balloon ([id number]) was prepped and advanced across the Dist RCA , then inflated to 12 KRISHAN for 0:00 (min:sec) . 9:13:44 Balloon removed over the wire. 9:16:20 Inflate balloon Inflation number: 2 A EUPHORA 3.5 x 30 Balloon ([id number]) was prepped and advanced across the Dist RCA , then inflated to 12 KRISHAN for 0:00 (min:sec) . 9:17:03 Versed 1 mg I.V. was administered by Norbert Arcos RN; for sedation; Verbal order read back and verified. 9:17:57 Inflation number: 3 The EUPHORA 3.5 x 30 Balloon ([id number]) was reinflated across the Dist RCA , to 12 KRISHAN for 0:00 (min:sec) . 9:19:23 Balloon removed over the wire. 9:19:25 Wire removed. 9:19:25 Guide catheter removed. 9:19:35 EXOSEAL 6Fr (EX600) opened to sterile field. 9:19:56 Sheath removed intact; hemostasis achieved with Exoseal to the Right Femoral artery. 9:20:50 Procedure ended.(Physican Out) 9:21:09 Fluoroscopy time 08.00 minutes. 9:21:21 Flurop Dose total: 1004 9:21:21 Fluoroscopy dose: 1004 mGy 9:21:28 Dose Area Product 96708 mGy/cm. 9:21:34 Contrast amount:Isovue 300 120ml. 9:21:36 Maximum allowable dose exceeded? No. 9:21:37 Sharps counted by scrub and verified by R.N. 9:21:40 Insertion/operative site no bleeding no hematoma. 9:21:43 Post-op/insertion site Right Femoral artery dressed using a 4 x 4 and Tegaderm. 9:21:47 Post-procedure physical assessment completed. ASA score P 3 - A patient with severe systemic disease as per Mellisa Harrison RT(R). 9:21:51 Post procedure rhythm: unchanged. 9:21:53 Estimated blood loss: 10 ml 9:21:56 Post procedure instruction explained to patient.Patient verbalizes understanding. 9:21:57 Patient needs reinforcement of post procedure teaching. 9:22:34 Procedure type changed to Cath procedure, Diagnostic procedure, LHC, LHC w/Coronaries w/Grafts, Sedation Charges, Moderate Sedation 25-39 minutes, PCI procedure, Hemochron ACT Test, PTCA, PTCA Initial 9:23:18 Procedure and supply charges have been captured, reviewed, submitted and are correct. 9:23:20 Procedure Complication : No complications 9:23:22 Vital chart was stopped 9:23:25 [facility] Findings: MVD- PCI performed (see procedure note) 9:23:26 Operative report dictated upon procedure completion. 9:23:27 See physician's report for complete and final results. 9:23:29 Report given to [facility]. 9:23:32 Patient transfered to [facility] with Bed. 9:23:33 Procedure ended. 9:23:33 Full Disclosure recording stopped 9::22 ACT drawn and resulted at 350 seconds. (normal therapeutic range 180-240 seconds). 9:29:31 End room use (Document Last) Intervention Summary Intervention Notes Time ActionType Lesion and Equipment Action# Pressure Duration Attributes Used 9:12:59 Inflate Dist RCA EUPHORA 1 12 00:00 balloon 3.5 x 20 Balloon ([id number]) 9:16:20 Inflate Dist RCA EUPHORA 2 12 00:00 balloon 3.5 x 30 Balloon ([id number]) 9:17:57 Reinflate Dist RCA EUPHORA 3 12 00:00 balloon 3.5 x 30 Balloon ([id number]) Device Usage Item Name Manufacture Quantity Catalog Hospital Part Current Minimal L ot# / Number Charge Number Stock Stock Serial# Code ACIST Acist 1 94501 960541 [id number] [id number] 20 Syringe Medical (41477) Systems Inc Bag Microtek 1 994562 10055 146275 5 Decanter Medical Inc. () ACIST Hand Acist 1 41242 951074 567584 197531 5 Control Medical (86465) Systems Inc ACIST Acist 1 91035 435207 404441 596816 5 Manifold Medical (39310) Systems Inc Tegaderm 4 3M 1 1626W 055594 827213 497593 5 x 4 (1626W) Medline Medline 1 [id number] 802816 02812 012451 5 Cath Pack ([id number]) DIAGNOSTIC Cardinal 1 IU6999 897775 75019 197099 30 Multipack Health 5Fr catheter set (OY6269) EMERALD Cardinal 1 502-455 405732 426203 562229 5 Guide Wire Health (502-455) SHEATH 5FR Terumo 1 BAT230 182210 322135 260134 5 Casco (ONR861) MULTIPACK Cardinal 1 229835 5 JL 4.0 5Fr Health catheter MULTIPACK Cardinal 1 950575 5 3DRC 5Fr Health catheter DIAGNOSTIC Cardinal 1 [id number] 227331 994214 901810 15 AR MOD 5Fr Health Catheter (258598K) SHEATH 6FR Terumo 1 IBQ472 012749 826893 034067 40 Casco (IRK952) INFLATOR Merit 1 BG2752 476881 159296 921955 15 Merit Medical BasixCompak (DL9630) BMW 300cm [place] 1 9244619 970214 073426 097770 5 Straight Vascular [place] 2 wire (3429527) MULTIPACK Cardinal 1 075836 5 Pigtail 5 Health Fr catheter GUIDE 6FR Medtronic 1 LA6HSI 175009 64711 076279 1 HS I catheter (LA6HSI) EUPHORA 3.5 Medtronic 1 [id number] 683026 095783 565143 5 2 [id number] x 20 Balloon ([id number]) EUPHORA 3.5 Medtronic 1 [id number] 805983 553167 304985 5 2 [id number] x 30 Balloon ([id number]) EXOSEAL 6Fr Cardinal 1 EX600 371343 754032 375535 10 (EX600) Health Signature Audit [place] Stage Time Signature Unsigned Intra-Procedure 02/09/2021 Mellisa Harrison 9:29:50 AM RT(R) Intra-Procedure 02/09/2021 Norbert Arcos RN 9:31:04 AM Intra-Procedure 02/09/2021 Erik Pineda 9:31:22 AM Tashi PERRY Signatures Monitor : Mellisa Harrison Signature : RT Date : Time : Nurse : Norbert Arcos RN Signature : Date : Time : Performing Physician : Signature : Erik Man MD Date : Time : [address] [place] [address]
[2021-02-08] MEDS ORDERED: REPATHA SY140 MG/1 M SC (23:30)
[2021-02-08] MEDS ORDERED: ZOLOFT100 MG PO (23:30)
[2021-02-08] MEDS ORDERED: HYDROXYCHLOROQ200 MG PO (23:30)
[2021-02-08 23:31] VITALS: BP 139/74
[2021-02-08] MEDS ORDERED: COLCRYS0.6 MG PO (23:31)
[2021-02-09] MEDS ORDERED: ASPIRIN325 MG PO (01:33)
[2021-02-09] MEDS ORDERED: NEURONTIN 300300 MG PO (01:36)
[2021-02-09] MEDS ORDERED: GABAPENTIN300 MG PO (01:37)
[2021-02-09] MEDS ORDERED: SYNTHROID100 MCG PO (01:38)
[2021-02-09] MEDS ORDERED: MIRAPEX0.5 MG PO (01:39)
[2021-02-09] MEDS ORDERED: TRAZODONE HCL100 MG PO (01:39)
[2021-02-09] MEDS ORDERED: SINGULAIR10 MG PO (01:42)
[2021-02-09] MEDS ORDERED: KRILL OIL 1,001 EAC1 PO (01:45)
[2021-02-09] MEDS ORDERED: NITROQUICK0.4 MG SL (01:47)
[2021-02-09] MEDS ORDERED: VANCOCIN HCL250 MG PO (01:47)
[2021-02-09] MEDS ORDERED: FLAGYL500 MG PO (01:48)
[2021-02-09] MEDS ORDERED: ULTRAM50 MG PO (01:49)
[2021-02-09 01:50] VITALS: BP 133/75; BMI 26.6
--- NOTE | 2021-02-09 02:50 | NUR ---
0200-- CHEST PAIN 06/24, REPORTS CRUSHING THAT RADIATES TO SHOULDERS & BACK & LEFT ARMM NITRO 0.4MG X1 GIVEN WITH RELIEF 117/78 61 90% 2L/NC INCREASED O2 TO 3L/NC NOTIFIED EMIL OF ELEVATED TROP & CP
[2021-02-09 03:45] VITALS: BP 118/71
--- NOTE | 2021-02-09 04:40 | NUR ---
0400--C/O 06/24 CRUSHING CP, RADIATES SHOULDERS/LEFT ARM/BACK C/O BEING HOT. EKG DONE. WRITHING IN BED. STATES THIS IS WORSE THAN LAST TIME. NTG 0.4MG X1 GIVEN. BP 151/89 HR-64 SAT- 95%, 3L/NC 0405--03/24 CP, MORPHINE 2MG IVP, CONTINUES TO RADIATE SHOULDERS/LEFT ARM/BACK. INCREASED O2 TO 5L/NC BP 94/62 HR 53 O2 94% 0410--10/25, BP 93-63 HR 47 O2 95% NOTIFIED CARDIOLOGY, NEW ORDERS RECEIVED.
--- NOTE | 2021-02-09 05:20 | NUR ---
0500--C/O MID EPIGASTRIC PAIN "PUNCHING" SENSATION. EDWIN & MIRIAM GIVEN.
--- NOTE | 2021-02-09 05:21 | NUR ---
0045--ADMISSION NOTE PT TO ROOM FROM ER. UP TO BATHROOM & TO BED, C/O CHEST DISCOMFORT WITH EXERTION. PAIN EASED UP UPON RETURNING TO BED. WILL CONTINUE TO MONITOR FREQUENTLY
[2021-02-09 06:39] LABS: BASOPHILS 0.8 % (0-2); EOSINOPHILS 4.2 % (0-7); HEMATOCRIT 45.4 % (36.0-48.0); HEMOGLOBIN 14.4 g/dL (12-16); LYMPHOCYTES 11.9 % (15-50); MCH 29.9 pg (26.0-34.0); MCHC 31.8 g/dL (31.0-37.0); MEAN PLATELET VOLUME 8.2 fL (7.4-10.4); MONOCYTES 7.1 % (2-11); PLATELET COUNT 372 10x3/uL (130-400); RBC 4.83 10x6/uL (4.00-5.40); RDW 16.5 % (11.5-14.5); WBC 9.9 10x3/uL (4.8-10.8)
[2021-02-09 07:06] LABS: CALC OSMOLALITY 284 mosm/kg (275-300); CARBON DIOXIDE 27.3 mmol/L (21.0-32.0); CHLORIDE - SERUM 106 mmol/L (98-107); CKMB 1.3 U/L (0.0-3.6); CREATINE KINASE 70 UL (21-215); CREATININE - SERUM 1.1 mg/dL (0.6-1.3); GLUCOSE 84 mg/dL (74-106); MAGNESIUM - SERUM 1.9 mg/dL (1.8-2.4); PHOSPHOROUS 3.3 mg/dL (2.5-4.9); POTASSIUM - SERUM 3.6 mmol/L (3.5-5.1); SODIUM 143 mmol/L (136-145); UREA NITROGEN 16 mg/dL (7-18); eGFR NON AFRICAN AMERICAN 53 mL/min (90-120)
[2021-02-09 07:09] LABS: TROPONIN-I 0.244 ng/mL (0.000-0.060)
[2021-02-09 07:40] LABS: APTT 40.5 SECONDS (22.8-39.4); INR 1.2 (0.85-1.17)
--- NOTE | 2021-02-09 07:40 | NUR ---
Lying in bed, awake/alert/oriented, T/R self ad catina, cont of B/B with BRPs per self ad catina, denies pain/other discomfort at this time, call light/phone/water within reach, no s/s of acute distress observed.
[2021-02-09 07:43] VITALS: Ht 162.6 cm; Wt 70.3 kg
[2021-02-09 08:05] LABS: CHOL - HDL RATIO 3.4 ratio (2.3-4.1); LDL-HDL RATIO 1.9 ratio (1.5-3.5)
[2021-02-09 08:06] VITALS: BP 91/52
--- NOTE | 2021-02-09 08:12 | NUR ---
Paged Trey (Cardiology)
--- NOTE | 2021-02-09 08:14 | NUR ---
Notified Dr. Becker and Trey of elevated Troponin, NNO
--- NOTE | 2021-02-09 08:35 | NUR ---
Off unit for procedure
--- NOTE | 2021-02-09 09:33 | NUR ---
Rcvd report from label maker...RCA was 95% blockage, rcvd 5000 units Heparin, 2mg Versed, and 100 mics Fentanyl, placed 6Fr exoseal to rt groin
--- NOTE | 2021-02-09 09:44 | NUR ---
Returned to room, see VS sheet, lying flat in bed, awake/alert/oriented, call light/phone/water within reach, no s/s of acute distress observed
[2021-02-09] MEDS ORDERED: CARAFATE1 G PO (10:21)
[2021-02-09 11:25] VITALS: BP 100/58
--- NOTE | 2021-02-09 12:08 | NUR ---
Provided discharge instructions/education to which pt stated understanding, discontinuied IV access/cardiac telemetry monitoring.
--- NOTE | 2021-02-09 12:38 | NUR ---
DC'd home to self care in stable condition via w/c accompanied by hospital staff and family member, no s/s of acute distress observed
--- NOTE | 2021-02-10 20:10 | OP ---
PATIENT NAME: EVER ASHRAF MEDICAL RECORD: [id number] :55 LOCATION:D.M2 D.2109 ADMISSION DATE:02/08/21 SURGEON: OLGA WILLIS MD DATE OF OPERATION: 02/09/2021 PROCEDURE PERFORMED: Left heart catheterization, selective coronary angiography, right femoral artery approach. CATHETERS: A 5-Honduran sheath, 5/4 left and right Aroldo, 5/4 pig. The procedure was well tolerated. The patient may need a PTCA of the right coronary artery. The procedure was finished. FINDINGS: Left ventriculography in 30-degree REDDY view: Mild inferior basilar hypokinesis. Overall function, however, appears preserved at 50% or better. CORONARY ANATOMY: LEFT MAIN: Left main is free of disease. LAD: LAD fills for a short period of time and is seen via competitive flow from MORALES. CIRCUMFLEX: Totally occluded. RIGHT CORONARY ARTERY: The area of stenting in the distal third shows diffuse in-stent restenosis with JUANIS flow 2 distally. BYPASS GRAFTS: MORALES to LAD: This is widely patent throughout its course without post-anastomotic stenosis. SAPHENOUS VEIN GRAFT: Saphenous vein to the lateral system. CIRCUMFLEX: May have some early in-stent restenosis; however, fills the distal circumflex well with JUANIS flow distally and no evidence of post-anastomotic stenosis. RIGHT CORONARY ARTERY: Obvious culprit. PLAN: Intervention momentarily. DESCRIPTION OF PROCEDURE: A 5-Honduran sheath was exchanged for a 6-Honduran sheath. A hockey-stick guiding catheter was used. Provided excellent guide catheter support followed by 300 cm BMW wire. Balloon used was a 3.5 x 30 balloon up to 12 atmospheres, shows excellent resolution with 90% plus stenosis. No significant residual. JUANIS flow improved from 2 to 3. EKG resolved remarkably after procedure. Sheath closed with ExoSeal device. Plavix loaded in lab. TRANSINT:[id number] Voice Confirmation ID: [id number] DOCUMENT ID: [id number] OLGA WILLIS MD at 2009 CC: [id number] DICTATION DATE: 02/09/21929 ETL DEVELOPER: 02/09/21 1145 DIS IN 02/09/21 [facility] [address] [place] [address]
== END 2021-02-09 12:38 | disposition home or self-care (01) | DRG 251 ==
LOC: D.ER 23:23 → D.M2 23:57 → D.EDHOLD 23:57 → D.M2 02-09 00:11
PROVIDERS: Family Medicine; Internal Medicine Cardiovascular Disease; Internal Medicine Interventional Cardiology; ADMIT Family Medicine; ATTEND Family Medicine
PROC: B2111ZZ Fluoroscopy of Multiple Coronary Arteries using Low Osmolar Contrast (ICD-10-PCS; 2021-02-09)
PROC: B2121ZZ Fluoroscopy of Single Coronary Artery Bypass Graft using Low Osmolar Contrast (ICD-10-PCS; 2021-02-09)
PROC: B2151ZZ Fluoroscopy of Left Heart using Low Osmolar Contrast (ICD-10-PCS; 2021-02-09)
PROC: 02703ZZ Dilation of Coronary Artery, One Artery, Percutaneous Approach (ICD-10-PCS; principal; 2021-02-09 08:26)
PROC: 4A023N7 Measurement of Cardiac Sampling and Pressure, Left Heart, Percutaneous Approach (ICD-10-PCS; 2021-02-09 08:26)
DX: I21.4 Non-ST elevation (NSTEMI) myocardial infarction (principal); I25.10 Atherosclerotic heart disease of native coronary artery without angina pectoris; J44.9 Chronic obstructive pulmonary disease, unspecified; E78.5 Hyperlipidemia, unspecified; K21.9 Gastro-esophageal reflux disease without esophagitis; I10 Essential (primary) hypertension; F41.8 Other specified anxiety disorders; Z87.891 Personal history of nicotine dependence